=== PATIENT | male | born 1955 | race Caucasian/White ===

== ENCOUNTER 2021-05-01 08:53 | Inpatient (IN) | payer BC, MEDICARE ==
[~2021-05-01] VITALS: Ht 182.9 cm; Wt 109.9 kg
[~2021-05-01 08:53] MED LIST: IBUPROFEN600 MG PO; MICROZIDE12.5 MG PO
[2021-05-01 10:52] LABS: HEMOGLOBIN 12.6 gm/dl (14.0-17.5); RED BLOOD COUNT 3.89 M/UL (4.20-5.50); WHITE BLOOD COUNT 7.8 K/UL (4.5-11.0)
[2021-05-01 12:11] LABS: BUN/CREATININE RATIO 13 (0-10)
[2021-05-01] MEDS ORDERED: DELSYM30 MG/5 ML PO (15:20)
[2021-05-01] MEDS ORDERED: CARVEDILOL25 MG PO (17:48)
[2021-05-01] MEDS ORDERED: AMLODIPINE BESYL5 MG PO (17:48)
[2021-05-01] MEDS ORDERED: CHLORTHALIDONE50 MG PO (17:48)
[2021-05-01] MEDS ORDERED: LOSARTAN POTAS100 MG PO (17:48)
[2021-05-01] MEDS ORDERED: TRAZODONE HCL150 MG PO (17:49)
[2021-05-01] MEDS ORDERED: TERBINAFINE HC250 MG PO (17:49)
--- NOTE | 2021-05-02 02:00 | NUR ---
TECH REPORTED TEMPERATURE OF 100.8. UPON MY RECHECK I GOT A TEMPERATURE OF 102.1. CALLED DR. GIMENEZ FOR NEW ORDERS. GOT ORDER FOR TYLENOL 650 MG PO, STAT BLOOD CULTURES, LACTIC ACID, AND UA WITH C&S VIA TELEPHONE WITH READBACK. PATIENT ALSO SCORED A 6 ON THE ADMISSION ALCOHOL USE SCREENING. NOTIFIED DR. GIMENEZ OF THIS WELL AND RECEIVED AN ORDER TO START CIWA PROTOCOL. FIRST CIWA ASSESSMENT WAS SCORED A 7. WILL CONTINUE TO ASSESS CIWA Q4 HOURS UNTIL CHANGE.
[2021-05-02 02:15] LABS: HEMOGLOBIN 11.3 gm/dl (14.0-17.5); WHITE BLOOD COUNT 7.6 K/UL (4.5-11.0)
[2021-05-02 02:19] LABS: RED BLOOD COUNT 3.5 M/UL (4.20-5.50)
[2021-05-04 11:25] LABS: BUN/CREATININE RATIO 10 (0-10)
== END 2021-05-04 12:58 | disposition home or self-care (01) | DRG 641 ==
LOC: ER1 08:53 → M/S 16:31 → CDU 16:31 → M/S 21:56
PROVIDERS: Internal Medicine Nephrology; Physician Assistant Medical; ADMIT Internal Medicine
DX: E87.1 Hypo-osmolality and hyponatremia (principal); N17.9 Acute kidney failure, unspecified; Z20.822 Contact with and (suspected) exposure to COVID-19; E86.1 Hypovolemia; R19.7 Diarrhea, unspecified; E87.6 Hypokalemia; I10 Essential (primary) hypertension; E87.3 Alkalosis; E86.0 Dehydration; D69.6 Thrombocytopenia, unspecified; E83.39 Other disorders of phosphorus metabolism
CPT/HCPCS: 36415; 80048; 80053; 81001; 82436; 82570; 83605; 83735; 83935; 84100; 84132; 84133; 84295; 84300; 84439; 84443; 85025; 87040; 87086; 96372; 96374; 99284; J1650; J2405; U0002

== ENCOUNTER → 2021-05-06 | Outpatient (CLI) | payer BC, MEDICARE ==
[~2021-05-06] MED LIST changes: +AMLODIPINE BESYL5 MG PO; +CARVEDILOL25 MG PO; +CHLORTHALIDONE50 MG PO; +DELSYM30 MG/5 ML PO; +LOSARTAN POTAS100 MG PO; +TERBINAFINE HC250 MG PO; +TRAZODONE HCL150 MG PO
[2021-05-06 18:40] LABS: BUN/CREATININE RATIO 15 (0-10)
== END ==
LOC: LAB 17:52
PROVIDERS: Family Medicine
DX: E87.1 Hypo-osmolality and hyponatremia (principal)
CPT/HCPCS: 80048